=== PATIENT | female | born 1955 | race Caucasian/White ===

== ENCOUNTER → 2018-10-05 | Outpatient (CLI) | payer OTHER ==
[~2018-10-05] MED LIST: ALBUHFA IH; CALC-381 PO; CHOL500050 PO; FLAX100015 PO; KETO5DRO75 OU; LORA10TA7 PO; LOVA20TA3 PO; MOME17N NASAL; OMEG1CAP83 PO; TURM500C7 PO
== END | disposition home or self-care (01) ==
LOC: RAH 14:39
PROVIDERS: ATTEND Family Medicine
DX: R92.8 Other abnormal and inconclusive findings on diagnostic imaging of breast (principal); Z85.3 Personal history of malignant neoplasm of breast
CPT/HCPCS: 77065

== ENCOUNTER → 2019-10-19 | Outpatient (CLI) | payer OTHER | END | disposition home or self-care (01) | LOC: RAH 14:47 | PROVIDERS: ATTEND Family Medicine | DX: R92.8 Other abnormal and inconclusive findings on diagnostic imaging of breast (principal); Z85.3 Personal history of malignant neoplasm of breast | CPT/HCPCS: 77065 ==

== ENCOUNTER → 2020-07-13 | Outpatient (CLI) | payer OTHER | END | disposition home or self-care (01) | LOC: RAH 14:29 | PROVIDERS: ATTEND Family Medicine | DX: R59.0 Localized enlarged lymph nodes (principal) | CPT/HCPCS: 76536 ==

== ENCOUNTER → 2020-12-31 | Outpatient (CLI) | payer OTHER | END | disposition home or self-care (01) | LOC: RAH 08:18 | PROVIDERS: ATTEND Family Medicine | DX: R92.2 Inconclusive mammogram (principal); Z85.3 Personal history of malignant neoplasm of breast | CPT/HCPCS: 77065 ==

== ENCOUNTER → 2021-07-12 | Outpatient (CLI) | payer OTHER | END | disposition home or self-care (01) | LOC: RAH 13:32 | PROVIDERS: ATTEND Family Medicine | DX: E04.1 Nontoxic single thyroid nodule (principal) | CPT/HCPCS: 76536 ==

== ENCOUNTER → 2022-01-15 | Outpatient (CLI) | payer OTHER | END | disposition home or self-care (01) | LOC: RAH 10:17 | PROVIDERS: ATTEND Family Medicine | DX: E04.2 Nontoxic multinodular goiter (principal) | CPT/HCPCS: 76536 ==

== ENCOUNTER → 2022-02-26 | Outpatient (CLI) | payer OTHER | END | disposition home or self-care (01) | LOC: RAH 01-02 14:34 | PROVIDERS: ATTEND Family Medicine | DX: R92.2 Inconclusive mammogram (principal); Z85.3 Personal history of malignant neoplasm of breast | CPT/HCPCS: 77065 ==

== ENCOUNTER → 2023-06-03 | Outpatient (CLI) | payer OTHER | END | disposition home or self-care (01) | LOC: RAH 08:39 | PROVIDERS: ATTEND Family Medicine | DX: Z85.3 Personal history of malignant neoplasm of breast (principal) | CPT/HCPCS: 77065 ==

== ENCOUNTER → 2024-07-04 | Outpatient (CLI) | payer OTHER | END | disposition home or self-care (01) | LOC: RAH 11:17 | PROVIDERS: ATTEND Family Medicine | DX: E04.2 Nontoxic multinodular goiter (principal) | CPT/HCPCS: 76536 ==

== ENCOUNTER → 2024-08-01 | Outpatient (CLI) | payer OTHER ==
--- NOTE | 2024-08-02 08:32 | HMCIMG ---
DIAGNOSTIC MAMMOGRAM HISTORY: HX OF BREAST CA COMPARISON: 06/03/2023 TECHNIQUE: Right digital diagnostic mammogram was performed. No additional views were obtained. FINDINGS: Parenchymal density: The breasts are almost entirely fatty. There is no evidence of a dominant mass, or suspicious microcalcification. There is no evidence of nipple retraction or skin thickening. IMPRESSION: 1. Stable mammogram. The patient was entered into a reminder system with a target due date for their next mammogram. BI-RADS CATEGORY 1: NEGATIVE Recommend monthly self breast exam as well as annual clinical examination. A negative x-ray should not delay biopsy if a dominant or clinically suspicious mass is present, since 8-10% of cancers are not identified by mammography. Dense breasts particularly, may obscure an underlying neoplasm. Some of these may be detected clinically and therefore, clinical examination is an essential part of breast evaluation.
== END | disposition home or self-care (01) ==
LOC: RAH 13:03
PROVIDERS: ATTEND Family Medicine
DX: R92.311 Mammographic fatty tissue density, right breast (principal); Z85.3 Personal history of malignant neoplasm of breast
CPT/HCPCS: 77065

== ENCOUNTER → 2025-08-21 | Outpatient (CLI) | payer OTHER ==
--- NOTE | 2025-08-21 23:25 | HMCIMG ---
EXAM:US Thyroid. CLINICAL HISTORY: Non toxic single thyroid nodule TECHNIQUE: Real-time ultrasound scan of the thyroid gland and soft tissues of the neck with image documentation. COMPARISON: None provided. FINDINGS: RIGHT LOBE: Right thyroid lobe measures 4.4cm x 1.5cm. It shows normal vascularity. A small fairly defined hypoechoic spongiform lesion measuring 0.61 x 0.33 x 0.57cm is noted in the right lobe of thyroid gland. It shows internal tiny cystic areas. No significant vascularity is seen on color doppler imaging. No internal calcifications / echogenic foci seen. No extra thyroidal extension noted. Another anechoic lesion measuring 0.39 x 0.16 x 0.29cm is seen. No significant vascularity is seen on [facility] color doppler imaging, no internal calcifications / echogenic foci seen, no extra thyroidal extension noted. LEFT LOBE: Left lobe of thyroid gland measures 4.18 x 1.01 x 1.28cm. A small solid isoechoic lesion measuring approx 0.51 x 0.22cm x 0.38cm is seen in left lobe of thyroid. Mild vascularity is seen on [facility]I color doppler imaging. No internal calcifications / echogenic foci seen, no extra thyroidal extension noted. Another anechoic lesion measuring 0.34 x 0.12 x 0.29cm is seen. No significant vascularity is seen on CDI color doppler imaging, no internal calcifications / echogenic foci seen, no extra thyroidal extension noted. ISTHMUS: Isthmus measures 0.17cm in AP dimension. It shows homogenous parenchyma. No focal lesion is seen in isthmus. IMPRESSION: 1. Thyromegaly 2. Isoechoic left thyroid nodule with mild vascularity - TIRADS 3 (3 points) 3. Spongiform right thyroid nodule - TIRADS 2 ( 2 points) 4. Bilateral cystic thyroid nodules - TIRADS 1 (0 points) /[place]
== END | disposition home or self-care (01) ==
LOC: RAH 11:19
PROVIDERS: ATTEND Family Medicine
DX: E04.2 Nontoxic multinodular goiter (principal)
CPT/HCPCS: 76536